=== PATIENT | female | born 1955 | race Caucasian/White ===

== ENCOUNTER 2024-08-25 10:23 | Emergency (ER) | payer MEDICARE, OTHER, SELFPAY ==
[2024-08-25 10:28] VITALS: BP 144/86
--- NOTE | 2024-08-25 11:22 | ED.GENMED ---
History of Present Illness
General
Chief Complaint: Crisis Evaluation
Source: patient
Exam Limitations: none
Time Seen by Provider: 08/25/24 10:39
Nursing documentation reviewed up to this point in time: agreed with
History of Present Illness
History of Present Illness:
69-year-old female with a history of depression on BuSpar
Peptic ulcer disease on pantoprazole
On Ozempic
Presents for worsening depressive episode over the last week. Patient says she started crying about a week ago and was seen by a PA with her psychiatrist who added Rexulti to the patient's regimen. Patient says she took 1 or 2 doses and had nausea
and vomiting so she stopped it. She still feels nauseous and has a lack of appetite but she has not been actively vomiting since stopping it last week. Patient said she has a follow-up scheduled for a couple weeks for now and new counselor
appointment for next week but in the meantime has had some triggers and feels like her depression is worse over the last couple days. Patient felt briefly okay last week but then got worse over the weekend. She has some contributory factors, her
youngest son was killed 4 years ago in a car accident. She has 2 other sons, 1 is not present because of his mental illness he had a psychotic break and accidentally stabbed a family member and killed her. This is very upsetting to her but not a
new issue. The newer trigger is that her very well-controlled bipolar oldest son started acting out over the last couple of days and this is probably what initiated her depression this time. Patient says she feels like she was she were not alive
symptoms but does not have thoughts of wanting to hurt herself specifically. She is also not having any homicidal ideations, hallucinations, delusions. Patient knows she needs help.
She did see a film processing utility worker last week and told them she was having some nausea and chest pain but she felt like it was probably anxiety. He did an EKG in the office which was reported to her as being normal. She is just felt chest tightness like an
anxious feeling for the last several days. She has no cardiac disease. Patient is a non-smoker, there is no drug use. She does use alcohol sometimes but not regularly.
Past History
Past History
ED Past Medical History: Psychiatric and Other (Peptic ulcer disease)
Social History
Tobacco: Non-smoker
Alcohol: Occasional
Drug: None
Personal:
Living: with family
Review of Systems
Review of Systems
Allergies reviewed?: Yes
All Other Systems: Not applicable
Phy Exam
Physical Exam
Physical Exam:
GENERAL: Alert , tearful
EYE: pupils equal and reactive
NECK: Supple
ENT: o/p clr, mmm.
CARDIAC: Regular rate and rhythm .
LUNGS: Clear breath sounds bilaterally, no acute respiratory distress, no wheezes/rales/rhonchi
ABDOMEN: Soft, without focal tenderness, no r/g, no cvat, normal bowel sounds
NEUROLOGICAL: Alert and oriented, no focal neuro deficits
SKIN: Warm and dry, skin intact.
MUSCULOSKELETAL: No edema, well perfused. neg annie's sign
PSYCH: Depressed, no SI, tearful
Course
Orders/Labs/Results
Orders:
Orders
08/25/24 10:33
Crisis Consult Urgent
Reason for Consult: depression
08/25/24 11:10
0.9% Sodium Chloride 1000 ml [Nss] 1,000 ml IV BOLUS
Pantoprazole [Protonix IV] 40 mg IV NOW STA
08/25/24 11:11
Electrocardiogram (*1) Urgent
Reason for Study: Chest Pain
EKG- Treatment ONCE
08/25/24 11:33
Complete Blood Count/With Diff Urgent
Comprehensive Metabolic Panel Urgent
Lipase Urgent
Troponin I Urgent
Abnormal Lab Results
08/25/24
11:33
RBC 4.00 L 10^6/uL
(4.20-5.40)
MCH 32.3 H pg
(27.0-31.0)
Lymphocytes % 19.7 L %
(20.5-51.1)
Calcium 10.3 H mg/dl
(8.4-10.2)
08/25/24 11:33
08/25/24 11:33
Vital Signs
Initial and Last Documented VS:
Initial Vital Signs
Temp Pulse Resp BP Pulse Ox
37.1 C 109 18 144/86 99
08/25/24 10:28 08/25/24 10:28 08/25/24 10:28 08/25/24 10:28 08/25/24 10:28
Last Documented Vital Signs
Temp Pulse Resp BP Pulse Ox
37.1 C 96 16 127/71 100
08/25/24 10:28 08/25/24 12:55 08/25/24 12:55 08/25/24 12:55 08/25/24 12:55
MDM/Problems Addressed
Differential Diagnosis Includes:
depression, pancreatitis, dehydration, gastritis
MDM/Problems Addressed:
69 y/o F with depression
here with inc depression due to some emotional stressors, her son recently had some mental health challenges, 1 son was killed a few years ago and the other is incarcerated for accidetnally stabbing his grandmother and killingher during psychotic
episode
pt says the trigger this time was that her son who is doing well usually was recently not and this was very upsetting and pt has not been able to stop crying
she did reach out to her pyschiatrist, had emergency visit and they tried to add rexalti to her regimen but pt started vomiting and didn't toelrate it so she stopped after 1 dose
pt has had some nausea/chest tighrtness/anxiety/lack of apeptite/feels very depressed
she is tearful here but not having SI
abdomen benign
looked al ittle dhedrated
labs reassuring, normal lipse/lfts, stable hg
normal wbc
ekg nsr no ischemia
trop neg
feels better after fluids
seen by crisis and cleared for outpatient resources
pt will call to move up herpsychiatrist appt
*Critical Care Note
Total Time (30-74mins, 75-104mins- exclusive of procedures): Not Applicable
ED Attending Note
-
Portions of this chart may have been created with voice recognition software.� Occasional wrong word or��sound alike� substitutions may have occurred due to the inherent limitations of voice recognition software.
Discharge Plan
Departure
Patient Disposition: Home (Routine Discharge)
Date of Disposition: 08/25/24
Time of Disposition: 13:06
Patient with high blood pressure during this ER visit?: No
Condition: Fair
Covid-19: Not Applicable
Discharge Problem:
Depression
Instructions: Depression, Adult (DC)
Referrals:
Kyle Cassidy, DO [Family Provider] - Follow up in 2-3 days
Activity Restrictions/Additional Instructions:
You were screened with some blood work for your vomiting. There is no sign of pancreatitis or any obvious infection.
It is very important that you follow-up with your psychiatrist. Hopefully you can move up your appointment since you did not have any luck with the Rexulti
They may want to change your medication to something else. In the meantime you were given resources from crisis counselor. Should you have any suicidal thoughts or any worsening severe depression you should return. Otherwise try bland diet, stay
hydrated, follow-up with your family doctor and your psychiatrist
Interventions
Interventions:
*Risk Screen - Suicide Last Done: 08/25/24 10:26
*General Assessment Last Done: 08/25/24 10:28
*Neglect/Abuse Screening Last Done: 08/25/24 10:28
*ED- Fall Risk Assessment Last Done: 08/25/24 10:46
*ED COVID-19 Vaccine History Last Done: 08/25/24 10:46
*Nursing Disposition Last Done: 08/25/24 13:12
ED-Psychological Assessment Last Done: 08/25/24 10:46
Discharge Date and Time
Discharge Date/Time: 08/25/24 13:12
Print Language: BULGARIAN
[2024-08-25] MEDS: PROTONIX IV 40 MG IV (11:34)
[2024-08-25] MEDS: NSS 1000 IV (11:35)
[2024-08-25 11:45] LABS: % Basophils 0.7 % (0-2); % Eosinophils 0.8 % (0-6); % Immature Granulocytes 0.3 % (0-0.5); % Lymphocytes 19.7 % (20.5-51.1); % Monocytes 7.3 % (1.7-9.3); % Neutrophils 71.2 % (42.2-75.2); Absolute Basophils 0.1 10^3/uL (0-0.2); Absolute Eosinophils 0.1 10^3/uL (0-0.7); Absolute Lymphocytes 1.4 10^3/uL (1.2-3.4); Absolute Monocytes 0.5 10^3/uL (0.1-0.6); Absolute Neutrophils 5.2 10^3/uL (1.4-6.5); Hematocrit 37.6 % (37.0-47.0); Hemoglobin 12.9 g/dL (12.0-16.0); Mean Corp Hgb Conc. 34.3 g/dL (33.0-37.0); Mean Corpuscular Hgb 32.3 pg (27.0-31.0); Mean Platelet Volume 10.3 fL (7.4-10.4); Nucleated Red Blood Cells % 0 %; Platelet Count 282 10^3/uL (130-400); White Blood Cell Count 7.3 10^3/uL (4.8-10.8)
[2024-08-25 12:00] LABS: ALT (SGPT) 17 U/L (0-35); AST (SGOT) 21 U/L (14-36); Alkaline Phosphatase 63 U/L (38-126); Blood Urea Nitrogen 17 mg/dl (7-17); Calcium 10.3 mg/dl (8.4-10.2); Carbon Dioxide 28 mmol/L (22-30); Chloride 106 mmol/L (98-107); Glucose 98 mg/dl (70-99); Potassium 4.4 mmol/L (3.5-5.1); Sodium 143 mmol/L (135-145); Total Bilirubin 0.4 mg/dl (0.2-1.3); Total Protein 7.2 g/dl (6.3-8.2); eGFR > 60.00
[2024-08-25 12:09] LABS: Troponin I < 0.012 ng/ml
[2024-08-25 12:45] LABS: Lipase 141 U/L (23-300)
[2024-08-25 12:55] VITALS: BP 127/71
== END 2024-08-25 13:12 | disposition home or self-care (01) ==
LOC: EMR 10:23
PROVIDERS: Physician Assistant; EMERGENCY PHYSICIAN Student in an Organized Health Care Education/Training Program; FAMILY PHYSICIAN Family Medicine
DX: F32.A Depression, unspecified (principal); R11.0 Nausea; R07.89 Other chest pain; R63.0 Anorexia; Z87.11 Personal history of peptic ulcer disease
CPT/HCPCS: 99284; 96374; 96361; 80053; 83690; 84484; 85025; 93005